=== PATIENT | male | born 1995 | race Caucasian/White ===

== ENCOUNTER 2016-11-21 16:32 | Emergency (ER) | payer OTHER ==
[~2016-11-21] VITALS: Ht 175.3 cm; Wt 61.4 kg
[~2016-11-21 16:32] MED LIST: NO HOME MEDICATIONS; NORCO 325 MG-51 TAB PO; TYLENOL #3 301 UDTAB PO; [UNRECOGNIZED DRUG - REMARK]
[2016-11-21 16:33] VITALS: TEMP 97.4
[2016-11-21 18:16] VITALS: BP 113/69; PULSE 54
== END 2016-11-21 18:16 | disposition home or self-care (01) ==
LOC: COL.ER 16:32
DX: S61.212A Laceration without foreign body of right middle finger without damage to nail, initial encounter (principal); S61.214A Laceration without foreign body of right ring finger without damage to nail, initial encounter; S61.216A Laceration without foreign body of right little finger without damage to nail, initial encounter; W26.0XXA Contact with knife, initial encounter; Y93.G1 Activity, food preparation and clean up; Z23 Encounter for immunization

== ENCOUNTER 2016-12-02 13:16 | Emergency (ER) | payer OTHER ==
[2016-12-02 13:32] VITALS: BP 113/47; PULSE 52; TEMP 97.8
== END 2016-12-02 14:03 | disposition other institution (70) ==
LOC: COL.ER 13:16
DX: Z48.02 Encounter for removal of sutures (principal)

== ENCOUNTER 2018-06-13 23:23 | Emergency (ER) | payer SELFPAY ==
[~2018-06-13] VITALS: Ht 175.3 cm; Wt 61.4 kg
[2018-06-13 23:30] VITALS: BP 147/75; TEMP 98.8
[2018-06-14 00:51] VITALS: PULSE 62
== END 2018-06-14 00:51 | disposition home or self-care (01) ==
LOC: COL.ER 23:23
DX: S40.012A Contusion of left shoulder, initial encounter (principal); F17.210 Nicotine dependence, cigarettes, uncomplicated; Z90.89 Acquired absence of other organs; W01.0XXA Fall on same level from slipping, tripping and stumbling without subsequent striking against object, initial encounter; Y92.89 Other specified places as the place of occurrence of the external cause

== ENCOUNTER → 2018-07-17 | Outpatient (CLI) | payer OTHER | LOC: COL.RAD 13:30 | DX: S43.015A Anterior dislocation of left humerus, initial encounter (principal); M24.412 Recurrent dislocation, left shoulder; M24.012 Loose body in left shoulder; M24.10 Other articular cartilage disorders, unspecified site | CPT/HCPCS: A9585; Q9967 ==

== ENCOUNTER 2020-03-04 20:56 | Emergency (ER) | payer OTHER ==
[~2020-03-04] VITALS: Ht 177.8 cm; Wt 63.6 kg
[2020-03-04 21:12] VITALS: BP 134/80; PULSE 70; TEMP 98.5
== END 2020-03-04 21:57 | disposition left against medical advice (07) ==
LOC: COL.ER 20:56
DX: R07.81 Pleurodynia (principal)

== ENCOUNTER 2020-03-26 10:15 | Emergency (ER) | payer SELFPAY ==
[~2020-03-26] VITALS: Ht 177.8 cm; Wt 65.9 kg
[2020-03-26 10:17] VITALS: BP 128/67; PULSE 63; TEMP 98.5
[2020-03-26] MEDS ORDERED: BACTRIM DS 8001 TAB PO (10:34)
== END 2020-03-26 10:44 | disposition home or self-care (01) ==
LOC: COL.ER 10:15
DX: L03.011 Cellulitis of right finger (principal); F17.220 Nicotine dependence, chewing tobacco, uncomplicated

== ENCOUNTER 2020-05-25 16:40 | Emergency (ER) | payer SELFPAY ==
[~2020-05-25] VITALS: Ht 177.8 cm; Wt 63.6 kg
[~2020-05-25 16:40] MED LIST changes: +BACTRIM DS 8001 TAB PO
[2020-05-25 16:48] VITALS: BP 1348/71; TEMP 97.5
[2020-05-25 17:34] VITALS: PULSE 70
== END 2020-05-25 17:35 | disposition home or self-care (01) ==
LOC: COL.ER 16:40
DX: S63.602A Unspecified sprain of left thumb, initial encounter (principal); Z90.89 Acquired absence of other organs; V86.56XA Driver of dirt bike or motor/cross bike injured in nontraffic accident, initial encounter; Y92.821 Forest as the place of occurrence of the external cause

== ENCOUNTER 2021-03-01 15:46 | Emergency (ER) | payer SELFPAY ==
[~2021-03-01] VITALS: Ht 180.3 cm; Wt 61.4 kg
[2021-03-01 15:58] VITALS: TEMP 97.5
[2021-03-01] MEDS ORDERED: NORCO 325 MG-51 TAB PO (16:50)
[2021-03-01 17:11] VITALS: BP 117/70; PULSE 87
== END 2021-03-01 17:15 | disposition home or self-care (01) ==
LOC: COL.ER 15:46
DX: S43.005A Unspecified dislocation of left shoulder joint, initial encounter (principal); S20.211A Contusion of right front wall of thorax, initial encounter; S80.212A Abrasion, left knee, initial encounter; F17.290 Nicotine dependence, other tobacco product, uncomplicated; V89.2XXA Person injured in unspecified motor-vehicle accident, traffic, initial encounter
CPT/HCPCS: J2250; J3010

== ENCOUNTER 2021-05-24 08:04 | Emergency (ER) | payer OTHER ==
[~2021-05-24] VITALS: Ht 175.3 cm; Wt 63.6 kg
[2021-05-24 08:12] VITALS: TEMP 98.4
[2021-05-24 12:40] VITALS: BP 122/68; PULSE 64
== END 2021-05-24 12:40 | disposition home or self-care (01) ==
LOC: COL.ER 08:04
DX: S43.005A Unspecified dislocation of left shoulder joint, initial encounter (principal); X58.XXXA Exposure to other specified factors, initial encounter
CPT/HCPCS: J1885; J2704; J3010; J3360; J7030